=== PATIENT | male | born 1995 | race Caucasian/White ===

== ENCOUNTER 2020-11-22 11:01 | Day surgery (SDC) | payer OTHER ==
[2020-11-20 11:05] VITALS: BMI 20.6
[2020-11-22] MEDS ORDERED: EPINEPHrine 1:1,000 1 MG/1 ML - 30ML VIAL (INJECTION) ONE (14:46)
[2020-11-22] MEDS ORDERED: BUPIVACAINE HCL/PF 0.25% (2.5MG/ML) 10 ML VIAL ONE (14:56)
[2020-11-22] MEDS ORDERED: BUPIVACAINE HCL/PF 0.25% (2.5MG/ML) 10 ML VIAL IJ ONE (15:03)
[2020-11-22] MEDS ORDERED: MIDAZOLAM HCL 2 MG/2 ML SINGLE DOSE VIAL ONE (16:00)
[2020-11-22] MEDS ORDERED: ceFAZolin 2 GRAM PREMIX BAG IVPB ONE (16:03)
[2020-11-22] MEDS ORDERED: PROPOFOL 20 ML ONE ×2 (16:06)
[2020-11-22] MEDS ORDERED: LIDOCAINE HCL/PF 2% SDV 5ML VIAL ONE ×2 (16:07→16:15)
[2020-11-22] MEDS ORDERED: SUCCINYLCHOLINE CHLORIDE 200 MG/10 ML SYRINGE ONE (16:07)
[2020-11-22] MEDS ORDERED: ONDANSETRON 4 MG/2 ML VIAL ONE (16:15)
[2020-11-22] MEDS ORDERED: KETOROLAC TROMETHAMINE 30 MG/1 ML VIAL ONE (16:15)
[2020-11-22] MEDS ORDERED: ceFAZolin SODIUM 1 GM VIAL ONE (16:15)
[2020-11-22] MEDS ORDERED: LIDOCAINE HCL 2% JELLY (5 ML/TUBE) ONE (16:15)
[2020-11-22] MEDS ORDERED: DEXAMETHASONE SOD PHOSPHATE 4 MG/1 ML VIAL ONE (16:15)
[2020-11-22] MEDS ORDERED: PROMETHAZINE HCL 25 MG/1 ML VIAL IVPUSH PRN (17:54)
[2020-11-22] MEDS ORDERED: oxyCODONE HCL 5 MG TABLET PO PRN ×2 (17:54)
[2020-11-22] MEDS ORDERED: ONDANSETRON 4 MG/2 ML VIAL IVPUSH PRN (17:54)
[2020-11-22] MEDS ORDERED: LACTATED RINGERS SOLUTION 1,000 ML IV SCH (18:00)
[2020-11-22] MEDS ORDERED: oxyCODONE HCL 5 MG TABLET ONE (18:23)
[2020-11-22] MEDS ORDERED: oxyCODONE HCL 5 MG TABLET PO ONE (18:25)
[2020-11-22 18:37] VITALS: TEMP 98.6
[2020-11-22 19:07] VITALS: BP 128/81; PULSE 88
== END 2020-11-22 19:00 | disposition home or self-care (01) ==
LOC: FASU 11:01
PROVIDERS: ATTEND Orthopaedic Surgery Sports Medicine
PROC: 0SQD4ZZ Repair Left Knee Joint, Percutaneous Endoscopic Approach (ICD-10-PCS; principal; 2020-11-22 16:20)
DX: S83.212A Bucket-handle tear of medial meniscus, current injury, left knee, initial encounter (principal); S83.512A Sprain of anterior cruciate ligament of left knee, initial encounter; X58.XXXA Exposure to other specified factors, initial encounter; Y93.9 Activity, unspecified; Y92.9 Unspecified place or not applicable
CPT/HCPCS: 94760